=== PATIENT | male | born 1970 ===

== ENCOUNTER 2024-09-08 06:08 | Day surgery (SDC) | payer OTHER ==
[~2024-09-08] VITALS: Ht 182.9 cm; Wt 89.3 kg
[~2024-09-08 06:08] MED LIST: AMLO5 PO; CREON DR 12,001 EACH PO; HYDACE5 PO; HYDCHL25 PO; IBUP800 PO; INSULANI SC; Lactated Ringer's 1,000 ML IV ONE; NOVOLOG FL100 UNIT/3; PANT20 PO
[2024-09-08] MEDS ORDERED: NS 50 ML IV ONE (06:37)
[2024-09-08] MEDS ORDERED: CeFAZolin Sodium 2,000 MG VIAL ONE (06:37)
[2024-09-08] MEDS ORDERED: Tranexamic Acid 100 ML IV ONE (06:38)
[2024-09-08] MEDS ORDERED: FentaNYL Citrate 50 MCG/ML 2 ML Injection ONE (06:46)
[2024-09-08] MEDS ORDERED: Midazolam HCl 1MG / ML 2ML Vial ONE (06:46)
[2024-09-08] MEDS ORDERED: Sugammadex Sodium 200 MG/2ML SDV (100 MG/ML) ONE (06:46)
[2024-09-08] MEDS ORDERED: propofoL 20 ML IV ONE (06:46)
[2024-09-08] MEDS ORDERED: Bupivacaine 0.5% HCl 5 MG/ML 30MLVIAL ONE (06:47)
[2024-09-08] MEDS ORDERED: Ondansetron HCl 2 MG / ML 2ML Vial ONE (06:47)
[2024-09-08] MEDS ORDERED: Rocuronium Bromide 10 MG/ML 5ML Injection IV ONE (06:47)
[2024-09-08] MEDS ORDERED: Lidocaine 2%-Epineph 1:200000 20 ML SDV ONE (06:47)
[2024-09-08] MEDS ORDERED: Dexamethasone Sod Phos 10 MG/ML 1ML VIAL ONE (06:47)
[2024-09-08] MEDS ORDERED: Ketorolac Tromethamine 30mg Vial ONE (06:47)
[2024-09-08] MEDS ORDERED: TAMS.4ER PO (06:53)
[2024-09-08] MEDS ORDERED: Dexmedetomidine HCL 200 MCG / 2 ML ONE (06:57)
[2024-09-08] MEDS ORDERED: Lactated Ringer's 1,000 ML IV ONE ×2 (07:00→09:10)
[2024-09-08] MEDS ORDERED: Lidocaine 1%-Epineph 1:100000 20 ML MDV ONE (07:04)
--- NOTE | 2024-09-08 07:32 | NUR ---
09/08/24 0732 Danae Phoenix TIME OUT DONE PRIOR TO NERVE BLOCK BY DR ANGELES. PT TOLERATED BLOCK WELL.
--- NOTE | 2024-09-08 08:12 | NUR ---
09/08/24 0811 Emiliana Kessler 1 MG OF EPI ADDED TO FIRST 3 BAGS OF LR FOR IRREGATION. 2X SAFETY STRAPS 4X GEL PADS (1 UNDER EACH SATFETY STRAP, 1 UNDER COCCYX, 1 BETWEEN RIGHT ARM AND ARM BOARD.) STANDARD FOAM FACE MASK
[2024-09-08] MEDS ORDERED: EPINEPhrine HCl 1 MG/ML 1ML Amp XX ONE (08:17)
--- NOTE | 2024-09-08 10:08 | NUR ---
09/08/24 Aj Coyle PULSE OXYMETRY SWITCHED TO SAME SIDE B/P CUFF. O2 READING PERIODICALLY DEPRESSED D/T B/P CUFF.
== END 2024-09-08 11:50 | disposition home or self-care (01) ==
LOC: ORSCSDS 06:08
PROVIDERS: Orthopaedic Surgery Sports Medicine
PROC: 0RNK4ZZ Release Left Shoulder Joint, Percutaneous Endoscopic Approach (ICD-10-PCS; principal; 2024-09-08 07:30)
DX: M75.122 Complete rotator cuff tear or rupture of left shoulder, not specified as traumatic (principal); I10 Essential (primary) hypertension; E10.9 Type 1 diabetes mellitus without complications; Z79.4 Long term (current) use of insulin; Z79.899 Other long term (current) drug therapy
CPT/HCPCS: 82947; C1713; J0171; J0690; J1100; J1885; J2250; J2405; J2704; J3010; J7120